=== PATIENT | female | born 1970 | race Hispanic/Latino ===

== ENCOUNTER 2016-12-07 09:40 | Outpatient (CLI) | payer OTHER ==
--- NOTE | 2016-12-08 08:29 | Mammography Report ---
BILATERAL DIGITAL DIAGNOSTIC MAMMOGRAM with CAD and BILATERAL BREAST ULTRASOUND: 12/07/16 09:45:00 CLINICAL: Followup of a probably benign cyst of the left breast at 9 o'clock 5 cm from the nipple and followup of a right breast cyst at 10:30 o'clock 5 cm from the nipple. The patient failed to followup after her last mammogram. COMPARISON:[facility] 02/03/16 bilateral mammogram and bilateral breast ultrasound. FINDINGS: The breasts are heterogeneously dense, which may obscure small masses. The fibroglandular pattern is stable. No mass, architectural distortion or suspicious calcifications . . Ultrasound of the right breast demonstrated an oval anechoic cyst at 10 o'clock 5 cm from the nipple. It correlates with the previously described cyst, measures 6 x 3 x 5 mm and is stable. A cyst with internal echoes and a thin septation at 12 o'clock 5 cm from the nipple measures 5 x 4 x 9 mm. It was not reported on the last exam. Clustered microcysts at 10 o'clock 8 cm from the nipple measure 8 x 8 x 3 mm. Ultrasound of the left breast demonstrated an oval relatively anechoic cyst at 9 o'clock 5 cm from the nipple which correlates with the previously described cyst it measures 5 x 3 x 4 mm in measure slightly smaller. However, a second more complex irregular cyst is identified at 9 o'clock 5 cm from the nipple and measures 7 x 7 x 5 mm. IMPRESSION: A stable negative mammogram. The previously reported bilateral probably benign cysts have benign morphology and do not require followup. However, additional new bilateral cysts are more complex and require followup. BI-RADS CATEGORY: 3 - - Probably Benign RECOMMENDATION: Bilateral six month followup breast ultrasound to reevaluate the clustered microcysts at 10 o'clock 8 cm from the nipple in the right breast in the complex left breast cyst at 9 o'clock 5 cm from the nipple. ACR BI-RADS MAMMOGRAPHIC CODES: 0 = Needs additional imaging evaluation; 1 = Negative; 2 = Benign; 3 = Probably benign; 4 = Suspicious; 5 = Malignant; 6 = Known biopsy-proven malignancy COMMENT: 1. Dense breast tissue, i.e., adenosis, fibrocystic changes, etc., may obscure an underlying neoplasm. 2. Approximately 10% of cancers are not detected with mammography. 3. A negative mammography report should not delay biopsy if a clinically suspicious mass is present. COMMENT: Patient follow-up letters are generated by our [employer] application.
== END 2016-12-07 09:41 | disposition home or self-care (01) ==
LOC: MAMMO 09:40
PROVIDERS: ATTEND Family Medicine
DX: N60.01 Solitary cyst of right breast (principal); N60.02 Solitary cyst of left breast
CPT/HCPCS: 76642; G0204; 77066

== ENCOUNTER 2017-05-25 09:56 | Outpatient (CLI) | payer OTHER ==
--- NOTE | 2017-05-28 08:30 | Ultrasound Report ---
BILATERAL BREAST ULTRASOUND: 05/25/17 09:56:00 CLINICAL: Followup bilateral probably benign cysts. COMPARISON: 12/07/16 FINDINGS: Ultrasound of the right breast demonstrated stable clustered microcysts 10 o'clock 8 cm from the nipple measuring 8 x 5 x 4 mm compared to 8 x 3 mm on the last exam.Ultrasound of the left breast demonstrated a complex cyst at 9 o'clock 5 cm from the nipple measuring 7 x 5 x 4 mm compared to 7 x 7 x 5 mm on the last exam. IMPRESSION: Bilateral benign clustered microcysts. BI-RADS 2 - - Benign RECOMMENDATION: Return to routine mammographic screening.
== END 2017-05-25 09:57 | disposition home or self-care (01) ==
LOC: MAMMO 09:56
PROVIDERS: ATTEND Family Medicine
DX: N60.01 Solitary cyst of right breast (principal); N60.02 Solitary cyst of left breast

== ENCOUNTER 2019-01-03 10:12 | Outpatient (CLI) | payer SELFPAY ==
--- NOTE | 2019-01-07 15:49 | Mammography Report ---
DIGITAL SCREENING MAMMOGRAM WITH CAD, 01/03/2019 INDICATION: Routine screening mammography. TECHNIQUE: Digital bilateral 2D mammography was obtained in the craniocaudal and mediolateral obliq ue projections. This examination was interpreted with the benefit of Computer-Aided Detection analysi s. COMPARISON: 12/07/2016 FINDINGS: Breast Density: The breasts are heterogeneously dense, which may obscure small masses. There is no evidence of dominant mass, suspicious calcifications or architectural distortion in eithe r breast. IMPRESSION: No mammographic evidence of malignancy. Follow up recommendation: Routine yearly BI-RADS Category 1: Negative. A "normal" or negative report should not discourage follow up or biopsy of a clinically significant f inding. A written summary of these findings will be mailed to the patient. The patient will be entered into a mammography reporting system which will generate a reminder letter for the patient's next appointmen t at the appropriate interval. The [employer] recommends yearly mammograms starting at age 40 and continuing as l roshni as a woman is in good health. Breast MRI is recommended for women with an approximate 20-25% or greater lifetime risk of breast cancer, including women with a strong family history of breast or ova yolanda cancer or who have been treated for Hodgkin's disease. Signer Name: Joel Pink MD Signed: 01/07/2019 3:45 PM Workstation Name: [id number]
== END 2019-01-03 10:13 | disposition home or self-care (01) ==
LOC: MAMMO 10:12
PROVIDERS: ATTEND Family Medicine
DX: Z12.31 Encounter for screening mammogram for malignant neoplasm of breast (principal)
CPT/HCPCS: 77067